=== PATIENT | male | born 1955 | race Hispanic/Latino ===

== ENCOUNTER 2018-03-02 11:33 | Day surgery (SDC) | payer OTHER ==
[2018-03-02] MEDS ORDERED: Ringers Lactate 1,000 ML IV ONE (12:05)
[2018-03-02] MEDS ORDERED: LIDOCAINE 1% MPF 2 ML AMPULE ONE (13:14)
[2018-03-02] MEDS ORDERED: PROPOFOL 200 MG/20 ML VIAL IV ONE ×2 (13:15)
[2018-03-02 14:28] VITALS: BP 119/73; TEMP 97.2; O2SAT 96
--- NOTE | 2018-03-02 17:23 | OP ---
Surgeon: William Bear MD Procedure Performed: Colonoscopy. Indication For Procedure: Screening, also a remote history of iron deficiency anemia. Plan For Anesthesia: Monitored anesthesia care. Complexity: Average. Technique: After obtaining informed consent from the patient explaining risks and complications, whi ch include, but are not limited to bleeding, infection, perforation, and anesthesia complication, the patient was placed in a left lateral position and sedation was given. Subsequently, a digital recta l exam was performed and scope was inserted into the rectum and carefully guided up till the terminal ileum. After the completion of examination, scope and equipment were withdrawn and procedure termin ated in a safe manner. Findings: On digital rectal exam, the prostate appeared to be mildly enlarged, but smooth. No other abnormality was appreciated. The scope was advanced into the rectum and carefully guided up till th e terminal ileum. The quality of prep according to [place] prep score was 2+2+2, equal to 6 x 9. Sco pe withdrawal time was 11 minute. In the descending colon, two flat polyps from 4-7 mm were seen. T hese were removed by hot biopsy. In the transverse colon, 2 polyps from 6-7 mm were seen. These wer e also flat in nature were removed by hot biopsy. At the hepatic flexure, a 7 mm sessile polyp was s een. This was removed by hot biopsy. In the ascending colon, a flat polyp around 6 mm was seen. Th is was also removed by hot biopsy. The terminal ileum appeared normal. Retroflexion revealed grade 1 internal hemorrhoids. Complications: None. Tolerance To Anesthesia: Excellent. Postoperative Diagnoses: Multiple flat polyps, internal hemorrhoids, enlarged prostate. Plan: 1.Await pathology results. 2.Follow up in the GI clinic in 2 weeks. 3.EGD if not already scheduled for workup for the iron deficiency anemia. Staged colonoscopy recomm ended in 1 year due to multiple flat polyps if they vehicle return associate to be adenomatous. Follow up with [facility] for the prostate. US/MODL Voice ID: [id number] Report ID: [id number]
== END 2018-03-02 14:17 | disposition home or self-care (01) ==
LOC: OR 11:33
PROVIDERS: ATTEND Internal Medicine Gastroenterology
PROC: 0DBL8ZX Excision of Transverse Colon, Via Natural or Artificial Opening Endoscopic, Diagnostic (ICD-10-PCS; 2018-03-02)
PROC: 0DBM8ZX Excision of Descending Colon, Via Natural or Artificial Opening Endoscopic, Diagnostic (ICD-10-PCS; 2018-03-02)
PROC: 0DBK8ZX Excision of Ascending Colon, Via Natural or Artificial Opening Endoscopic, Diagnostic (ICD-10-PCS; principal; 2018-03-02 12:30)
DX: Z12.11 Encounter for screening for malignant neoplasm of colon (principal); K63.5 Polyp of colon; D12.4 Benign neoplasm of descending colon; D12.3 Benign neoplasm of transverse colon; K64.8 Other hemorrhoids
CPT/HCPCS: 88305; J2001

== ENCOUNTER 2023-06-28 11:03 | Day surgery (SDC) | payer MEDICARE ==
--- NOTE | 2023-06-24 14:10 | EKG ---
Test Date: 2023-06-23 Test Time: 10:30:20 Life Advisor: JT MEASUREMENT RESULTS: Intervals: Rate: 62 ME: 190 QRSD: 84 QT: 390 QTc: 395 [place]: P: 26 ME: 190 QRS: -1 T: 65 INTERPRETIVE STATEMENTS: Normal sinus rhythm Normal ECG Compared to ECG 01/29/2009 15:43:47 No significant changes Electronically Signed On 06-24-23 14:07:14 HAND RIVETER by Marquis Marroquin
[2023-06-28] MEDS ORDERED: Ringers Lactate 1,000 ML IV ONE (11:32)
[2023-06-28 11:33] VITALS: O2SAT 96
[2023-06-28] MEDS ORDERED: propofoL 200 MG/20 ML VIAL IV ONE (12:56)
[2023-06-28] MEDS ORDERED: MIDAZOLAM HCL 2 MG/2 ML INJ ONE (12:57)
[2023-06-28] MEDS ORDERED: LIDOCAINE 2% MPF 5 ML VIAL ONE (12:57)
[2023-06-28] MEDS ORDERED: BUPIVACAINE 0.25% PF 10 ML VIAL ONE (13:00)
[2023-06-28] MEDS ORDERED: LIDOCAINE 1% MPF 30 ML VIAL ONE (13:09)
[2023-06-28 14:04] VITALS: BP 110/67; TEMP 97
--- NOTE | 2023-06-28 14:07 | RAD REPORT ---
EXAM DESCRIPTION: RAD - Fluoro Guide Spinal Inj - 06/28/2023 1:28 pm CLINICAL HISTORY: LUMBAR MEDIAL BRANCH EPIDURAL, L3/L4 , L4/L5 COMPARISON: No comparisons FINDINGS/IMPRESSION: One intraoperative fluoroscopic images submitted for bilateral spinal injection s at L3, L4, and L5 . Fluoro time: 0.4 minutes Cumulative dose: 6.04 mGy
== END 2023-06-28 14:00 | disposition home or self-care (01) ==
LOC: OR 11:03
PROVIDERS: ATTEND Pain Medicine Interventional Pain Medicine
PROC: 3E0T3GC Introduction of Other Therapeutic Substance into Peripheral Nerves and Plexi, Percutaneous Approach (ICD-10-PCS; principal; 2023-06-28 12:45)
DX: M47.816 Spondylosis without myelopathy or radiculopathy, lumbar region (principal); M19.90 Unspecified osteoarthritis, unspecified site; E03.9 Hypothyroidism, unspecified; G25.0 Essential tremor
CPT/HCPCS: 64493; 64494; 93005; 77003; J2704; J2001 ×2; J2250; J7120; Q9967

== ENCOUNTER 2024-12-05 11:23 | Emergency (ER) | payer MEDICARE ==
--- OUTSIDE RECORDS SUMMARY | 2024-12-05 11:26 | XMS REPORT | Continuity of Care Document ---
Author Name Unknown Address [address] [facility] [place] [address] Organization [facility] [place] Address [address] [facility] [address] [place] [address] Care Team Providers Care Ranger Aide Name Role Phone DANN MEZA Primary Care Physician Unavaila ble Dann Meza Attending Clinician Unavailable KEL CARMONA Attending Clinician Unavailable Kel Carmona MD Attending Clinician [phone] CARLOS ZARAGOZA Attending Clinician Unavailable Carlos Zaragoza MD Attending Clinici an Rich Michael MD Attending Clinician [phone] Brian Cifuentes MD Attending Clinic star Lola Attending Clinician Unavailable Cindy Hutchins Attending Clinician [phone] TRISTEN PINEDA Attending Clinician UnavailTristen Bocanegra MD Attending Clinician [phone] Doctor Unassigned, [place] Attending Clinician CINDY Gallardo Attending Clinician Unavailable CARLOS ZARAGOZA Admitting Clinician Unavailable Lola Admitting Clinician Unavailable Payers Payer Name Policy Type Policy Number Effective Date Expirati on Date Source [employer] MEDICARE ADV[employer]AGE PLAN [id number] 2023 00:00:00 [employer] MGD MCR [id number] 2021 00:00:00 [employer] (MEDICARE REPLACEMENT HMO) [id number] 2021 00:00:00 Problems Condition Name Condition Details Condition Category Status Onset Date Resolution Date Last Treatment Date Treating Clinician Comments Source Arthritis of knee, right Arthritis of knee, right Disease Active 08-31 00:00: 00 [facility] No known active problems No known active problems Disease [facility] [id number] Primary osteoarthr itis of left knee Problem [facility] [id number] Primary osteoarthr itis of left shoulder Problem [facility] [id number] Primary osteoarthr itis of right shoulder Problem [facility] [id number] Other obstructiv e and reflux uropathy Problem [facility] [id number] Primary osteoarthr itis of right knee Problem [facility] [id number] Chronic anemia Problem [facility] Disorder of penis Penile abnormalit y Problem [facility] [id number] Tear of left rotator cuff, unspecifie d tear extent, unspecifie d whether traumatic Problem [facility] [id number] BXO (balanitis xerotica obliterans ) Problem [facility] [id number] Acquired phimosis of penis Problem [facility] [id number] Benign prostatic hyperplasi a with lower urinary tract symptoms Problem [facility] Allergies, Adverse Reactions, Alerts Allergy Name Allergy Type Status Severity Reaction(s) Onset Date Inactive Date Treating Clinician Comments Source NO KNOWN ALLERGIE S Drug Class Active [facility] NO KNOWN ALLERGIE S Allergy Active [facility] Social History Social Habit Start Date Stop Date Quantity Comments Source Gender identity [facility] Sexual orientation [facility] History of Tobacco Use [facility] History of Social function 2023-08-28 00:00:00 2023-08-28 00:00:00 [facility] Alcohol intake 2022-09-02 00:00:00 2022-09-02 00:00:00 Ex-drinker (finding) [facility] Alcoholic beverage intake 2022-09-02 00:00:00 2022-09-02 00:00:00 Ex-drinker (finding) [facility] Exposure to SARS-CoV-2 (event) 2022-08-21 00:00:00 2022-08-31 06:11:00 Not sure [facility] Tobacco use and exposure 2022-08-29 00:00:00 2022-08-29 00:00:00 Smokeless tobacco non-user [facility] Sex 2012-09-01 21:32:09 2012-09-01 21:32:09 Male (finding) [facility] Sex assigned at 1955 00:00:00 1955 00:00:00 [facility] Smoking Status Start Date Stop Date Source Never Smoker [facility] Medications Ordered Medication Name Filled Medication Name Start Date Stop Date Current Medication? Ordering Clinician Indication Dosage Frequency Signature (SIG) Comments Components Source Flomax 0.4 MG Flomax 0.4 MG 10-24 00:00: 00 No Flomax 0.4 MG Clotrimazol e-Betametha sone 1-0.05 % Clotrimazol e-Betametha sone 1-0.05 % -13 00:00: 00 No BID Clotrimazo le-Betamet hasone 1-0.05 % Synvisc Synvisc -24 00:00: 00 No 2mL [facility] BUPivacaine HCl BUPivacaine HCl - 00:00: 00 No 5mL [facility] butalbital- acetaminoph en-caff (ESGIC) 50-325-40 mg tablet 1 tablet 05-02 02:15: 00 05-02 02:24 :00 No 1{tbl} 1 tablet, Oral, ONCE, 1 dose, On Mon05/01/23 at 2115, [facility] acetaminoph en (TYLENOL) tablet 650 mg 05-02 01:45: 00 05-02 01:39 :00 No 650mg 650 mg, Oral, ONCE, 1 dose, On Mon05/01/23 at 2045, [facility] traMADoL (ULTRAM) 50 mg tablet 05-01 00:00: 00 Yes [id number] 50mg Take 1 tablet by mouth every 6 (six) hours as needed for Pain (scale 7-10). Indication s: acute pain [facility] nirmatrelvi r-ritonavir (PAXLOVID) 150-100 mg tablet 05-01 00:00: 00 05-07 04:59 :00 No [id number] 2{tbl} Take 2 tablets by mouth in the morning and 2 tablets in the evening. Do all this for 5 days. [facility] diclofenac (VOLTAREN) 75 MG EC tablet 08-31 15:46: 12 Yes 75mg Take 75 mg by mouth 2 (two) times daily as needed. [facility] Missing or Non-Formula ry Medication 08-31 15:46: 12 Yes as needed OTC antiinflam matory supplement . [facility] diclofenac (VOLTAREN) 75 MG EC tablet 08-31 06:12: 44 Yes 75mg Take 75 mg by mouth 2 (two) times daily as needed. [facility] Missing or Non-Formula ry Medication 08-31 06:12: 44 Yes as needed OTC antiinflam matory supplement . [facility] Kenalog (Triamcinol one) Kenalog (Triamcinol one) 11-30 00:00: 00 No 40mg [facility] Bupivicaine Arden Bupivicaine Arden 11-30 00:00: 00 No 2.5mg [facility] triamcinolo ne acetonide (KENALOG) injection 40 mg 10-01 17:00: 00 10-01 15:51 :00 No [id number] 40mg [facility] methylPREDN ISolone (MEDROL, ALETHEA,) 4 mg tablets 2019-08 00:00: 00 Yes [id number] 9104 84mg Take 21 tablets by mouth SEE-INSTRU CTIONS. follow package directions [facility] diclofenac 75 mg EC tablet 10-01 00:00: 00 Yes 75mg Take 1 tablet by mouth 2 (two) times daily with meals. [facility] gabapentin 600 mg tablet 08-15 00:00: 00 Yes [facility] clotrimazol e 1 % topical cream 2018-08 00:00: 00 Yes [facility] Silodosin 8 MG Silodosin 8 MG No 1{capsu le_with _a_meal } QD Silodosin 8 MG HYDROcodone -Acetaminop hen 10-325 MG HYDROcodone -Acetaminop hen 10-325 MG No 1{table t_as_ne eded} QID HYDROcodon e-Acetamin ophen 10-325 MG Diclofenac Sodium 75 MG Diclofenac Sodium 75 MG No 1{table t_as_ne eded} BID Diclofenac Sodium 75 MG Ferrous Sulfate 325 (65 Fe) MG Ferrous Sulfate 325 (65 Fe) MG No 1{table t} Ferrous Sulfate 325 (65 Fe) MG Levothyroxi ne Sodium 125 MCG Levothyroxi ne Sodium 125 MCG No QD Levothyrox ine Sodium 125 MCG Vital Signs Vital Name Observation Time Observation Value Comments S ource height 2024-10-24 15:30:00 68 [in_i] Commo n [facility] weight 2024-10-24 15:30:00 223 [lb_av] Comm on [facility] temperature 2024-10-24 15:30:00 98.2 [degF] Com mon [facility] bmi 2024-10-24 15:30:00 33.9 kg/m2 Commo n [facility] oximetry 2024-10-24 15:30:00 96 % Comm n [facility] respiratory rate 2024-10-24 15:30:00 18 /min [facility] blood pressure systolic 2024-10-24 15:30:00 114 mm[Hg] [facility] blood pressure diastolic 2024-10-24 15:30:00 57 mm[Hg] [facility] Systolic blood pressure 2023-05-02 02:31:00 102 mm[Hg] [facility] Diastolic blood pressure 2023-05-02 02:31:00 61 mm[Hg] [facility] Heart rate 2023-05-02 02:31:00 81 /min [facility] acute hospital Body temperature 2023-05-02 02:31:00 37.72 Jill [facility] Respiratory rate 2023-05-02 02:31:00 18 /min [facility] Oxygen saturation in Arterial blood by Pulse oximetry 2023-05-02 02:31:00 98 /min [facility] Body height 2023-05-02 01:32:00 172.7 cm [facility] Body weight 2023-05-02 01:32:00 95.89 kg [facility] BMI 2023-05-02 01:32:00 32.14 kg/m2 [facility] HEIGHT 2022-08-31 06:25:00 172.7 cm WEIGHT 2022-08-31 06:25:00 99 kg HEIGHT 2022-08-29 11:12:00 172.7 cm WEIGHT 2022-08-29 11:12:00 95.255 kg HEIGHT 2022-08-31 06:25:00 172.7 cm WEIGHT 2022-08-31 06:25:00 99 kg HEIGHT 2022-08-29 11:12:00 172.7 cm WEIGHT 2022-08-29 11:12:00 95.255 kg Systolic blood pressure 2021-10-01 15:29:00 155 mm[Hg] [facility] Diastolic blood pressure 2021-10-01 15:29:00 91 mm[Hg] [facility] Heart rate 2021-10-01 15:17:00 65 [facility] 2021-10-01 15:17:00 172.7 cm [facility] 2021-10-01 15:17:00 102.059 kg [facility] BMI 2021-10-01 15:17:00 34.21 kg/m2 [facility] Oxygen saturation in Arterial blood by Pulse oximetry 2021-10-01 15:17:00 97 /min [place] [facility] Systolic blood pressure 2022-08-31 13:30:00 134 mm[Hg] [facility] Diastolic blood pressure 2022-08-31 13:30:00 78 mm[Hg] [facility] Heart rate 2022-08-31 13:30:00 85 /min [facility] Body temperature 2022-08-31 13:30:00 36.78 Jill [facility] Respiratory rate 2022-08-31 13:30:00 18 /min [facility] Oxygen saturation in Arterial blood by Pulse oximetry 2022-08-31 13:30:00 98 /min [facility] Systolic blood pressure 2022-08-31 06:25:00 125 mm[Hg] [facility] Diastolic blood pressure 2022-08-31 06:25:00 67 mm[Hg] [facility] Heart rate 2022-08-31 06:25:00 67 /min [facility] Body temperature 2022-08-31 06:25:00 36.11 Jill [facility] Respiratory rate 2022-08-31 06:25:00 17 /min [facility] Body height 2022-08-31 06:25:00 172.7 cm [facility] Body weight 2022-08-31 06:25:00 99 kg [facility] BMI 2022-08-31 06:25:00 33.19 kg/m2 [facility] Oxygen saturation in Arterial blood by Pulse oximetry 2022-08-31 06:25:00 97 /min [facility] Procedures Procedure Date / Time Performed Performing Clinician Source RAPID STREP SCREEN FOR GROUP A 2023-05-02 01:39:00 Kel Carmona [facility] COVID-19 (ID NOW RAPID TESTING) 2023-05-02 01:39:00 Kel Carmona [facility] NOTICE OF PRIVACY PRACTICES 2023-05-02 01:21:28 Doctor Unassigned, [place] [facility] CONSENT/REFUSAL FOR DIAGNOSIS AND TREATMENT 2023-05-02 01:20:38 Doctor Unassigned, [place] [facility] XR KNEE 1 OR 2 VIEWS RIGHT 2022-08-31 09:40:00 Asaf Guajardo [facility] TISSUE EXAM 2022-08-31 08:30:00 Carlos Zaragoza Tank [facility] ANESTHESIA SPINAL BLOCK 2022-08-31 08:02:04 Dann Castro [facility] ANESTHESIA PERIPHERAL BLOCK 2022-08-31 08:00:57 Dann Mcmanus [facility] ARTHROPLASTY, KNEE, UNILATERAL 2022-08-31 07:36:00 Milla Carlos [facility] ARTHROPLASTY, KNEE, UNILATERAL 2022-08-31 07:30:00 Milla Carlos [facility] CBC W/PLT COUNT & AUTO DIFFERENTIAL 2022-08-31 06:01:00 Efren Rollins [facility] BASIC METABOLIC PANEL 2022-08-31 06:01:00 Efren Rollins [facility] TYPE AND SCREEN, AUTOMATED 2022-08-31 06:01:00 Asaf Guajardo [facility] CBC W/PLT COUNT & AUTO DIFFERENTIAL 2022-08-31 06:01:00 Efren Rollins [facility] STATEMENT OF PATIENT FINANCIAL RESPONSIBILITY 2021-10-01 06:01:00 Doctor Unassigned, [place] [facility] Plan of Care Planned Activity Planned Date Details Comments Source Future Scheduled Test 2023-08-31 00:00:00 Tobacco Cessation Counseling and Screening (12+) [code = Tobacco Cessation Counseling and Screening (12+)] [facility] Future Scheduled Test 2023-08-31 00:00:00 Tobacco Cessation Counseling and Screening (12+) [code = Tobacco Cessation Counseling and Screening (12+)] [facility] Future Scheduled Test 2023-08-31 00:00:00 Tobacco Cessation Counseling and Screening (12+) [code = Tobacco Cessation Counseling and Screening (12+)] [facility] Future Scheduled Test 2023-08-29 00:00:00 Tobacco Cessation Counseling and Screening (12+) [code = Tobacco Cessation Counseling and Screening (12+)] [facility] Future Scheduled Test 2023-08-14 00:00:00 DEPRESSION SCREENING (12+) [code = DEPRESSION SCREENING (12+)] [facility] Scheduled Test 2023-08-14 00:00:00 FALLS RISK SCREENING [code = FALLS RISK SCREENING] [facility] Future Scheduled Test 2023-04-14 00:00:00 Influenza Vaccine (#1) [code = Influenza Vaccine (#1)] [facility] Future Scheduled Test 2022-08-15 00:00:00 MEDICARE ANNUAL WELLNESS (YEAR 2 or FIRST YEAR if no IPPE) [code = MEDICARE ANNUAL WELLNESS (YEAR 2 or FIRST YEAR if no IPPE)] [facility] Future Scheduled Test 2022-08-15 00:00:00 MEDICARE ANNUAL WELLNESS (YEAR 2 or FIRST YEAR if no IPPE) [code = MEDICARE ANNUAL WELLNESS (YEAR 2 or FIRST YEAR if no IPPE)] [facility] Future Scheduled Test 2022-08-15 00:00:00 MEDICARE ANNUAL WELLNESS (YEAR 2 or FIRST YEAR if no IPPE) [code = MEDICARE ANNUAL WELLNESS (YEAR 2 or FIRST YEAR if no IPPE)] [facility] Future Scheduled Test 2022-08-15 00:00:00 MEDICARE ANNUAL WELLNESS (YEAR 2 or FIRST YEAR if no IPPE) [code = MEDICARE ANNUAL WELLNESS (YEAR 2 or FIRST YEAR if no IPPE)] [facility] Future Scheduled Test 2022-08-14 00:00:00 DEPRESSION SCREENING (12+) [code = DEPRESSION SCREENING (12+)] [facility] Future Scheduled Test 2022-08-14 00:00:00 FALLS RISK SCREENING [code = FALLS RISK SCREENING] [facility] Future Scheduled Test 2022-08-14 00:00:00 DEPRESSION SCREENING (12+) [code = DEPRESSION SCREENING (12+)] [facility] Future Scheduled Test 2022-08-14 00:00:00 FALLS RISK SCREENING [code = FALLS RISK SCREENING] [facility] Future Scheduled Test 2022-08-14 00:00:00 DEPRESSION SCREENING (12+) [code = DEPRESSION SCREENING (12+)] [facility] Future Scheduled Test 2022-08-14 00:00:00 FALLS RISK SCREENING [code = FALLS RISK SCREENING] [facility] Future Scheduled Test 2022-04-14 00:00:00 INFLUENZA VACCINE (#1) [code = INFLUENZA VACCINE (#1)] [facility] Future Scheduled Test 2022-04-14 00:00:00 INFLUENZA VACCINE (#1) [code = INFLUENZA VACCINE (#1)] [facility] Future Scheduled Test 2022-04-14 00:00:00 INFLUENZA VACCINE (#1) [code = INFLUENZA VACCINE (#1)] [facility] Future Scheduled Test 2019 00:00:00 PNEUMOCOCCAL 65+ YRS (1 - PCV) [code = PNEUMOCOCCAL 65+ YRS (1 - PCV)] [facility] Future Scheduled Test 2019 00:00:00 PNEUMOCOCCAL 65+ YRS (1 - PCV) [code = PNEUMOCOCCAL 65+ YRS (1 - PCV)] [facility] Future Scheduled Test 2019 00:00:00 PNEUMOCOCCAL 65+ YRS (1 - PCV) [code = PNEUMOCOCCAL 65+ YRS (1 - PCV)] [facility] Future Scheduled Test 2019 00:00:00 PNEUMOCOCCAL 65+ YRS (1 - PCV) [code = PNEUMOCOCCAL 65+ YRS (1 - PCV)] [facility] Future Scheduled Test 2004 00:00:00 SHINGLES VACCINES (1 of 2) [code = SHINGLES VACCINES (1 of 2)] [facility] Future Scheduled Test 2004 00:00:00 SHINGLES VACCINES (1 of 2) [code = SHINGLES VACCINES (1 of 2)] [facility] Future Scheduled Test 2004 00:00:00 SHINGLES VACCINES (1 of 2) [code = SHINGLES VACCINES (1 of 2)] [facility] Future Scheduled Test 2004 00:00:00 SHINGLES VACCINES (1 of 2) [code = SHINGLES VACCINES (1 of 2)] [facility] Future Scheduled Test 1973 00:00:00 DTAP/TDAP/TD VACCINES (1 - Tdap) [code = DTAP/TDAP/TD VACCINES (1 - Tdap)] [facility] Future Scheduled Test 1973 00:00:00 DTAP/TDAP/TD VACCINES (1 - Tdap) [code = DTAP/TDAP/TD VACCINES (1 - Tdap)] [facility] Future Scheduled Test 1973 00:00:00 DTAP/TDAP/TD VACCINES (1 - Tdap) [code = DTAP/TDAP/TD VACCINES (1 - Tdap)] [facility] Future Scheduled Test 1973 00:00:00 DTAP/TDAP/TD VACCINES (1 - Tdap) [code = DTAP/TDAP/TD VACCINES (1 - Tdap)] [facility] Future Scheduled Test 1972 00:00:00 HEPATITIS C SCREENING [code = HEPATITIS C SCREENING] [facility] Future Scheduled Test 1972 00:00:00 HEPATITIS C SCREENING [code = HEPATITIS C SCREENING] [facility] Future Scheduled Test 1972 00:00:00 HEPATITIS C SCREENING [code = HEPATITIS C SCREENING] [facility] Future Scheduled Test 1972 00:00:00 HEPATITIS C SCREENING [code = HEPATITIS C SCREENING] [facility] Future Scheduled Test 1954 00:00:00 COVID-19 VACCINE (#1) [code = COVID-19 VACCINE (#1)] [facility] Future Scheduled Test 1954 00:00:00 COVID-19 VACCINE (#1) [code = COVID-19 VACCINE (#1)] [facility] Future Scheduled Test 1954 00:00:00 COVID-19 VACCINE (#1) [code = COVID-19 VACCINE (#1)] [facility] Future Scheduled Test 1954 00:00:00 COVID-19 VACCINE (#1) [code = COVID-19 VACCINE (#1)] [facility] Future Scheduled Test 1954 00:00:00 CT Colonography (combo) [code = CT Colonography (combo)] [facility] Future Scheduled Test 1955 00:00:00 Screening for malignant neoplasm of colon (procedure) [code = 106155241] [facility] Future Scheduled Test 1954 00:00:00 Screening for malignant neoplasm of colon (procedure) [code = 557014805] [facility] Future Scheduled Test 1955 00:00:00 Screening for malignant neoplasm of colon (procedure) [code = 873763088] [facility] Future Scheduled Test 1954 00:00:00 Screening for malignant neoplasm of colon (procedure) [code = 598921777] [facility] Future Scheduled Test 1954 00:00:00 Sigmoidoscopy [code = Sigmoidoscopy] [facility] Future Scheduled Test 1954 00:00:00 CT Colonography (combo) [code = CT Colonography (combo)] [facility] Future Scheduled Test 1954 00:00:00 Screening for malignant neoplasm of colon (procedure) [code = 517566173] [facility] Future Scheduled Test 1954 00:00:00 Screening for malignant neoplasm of colon (procedure) [code = 091609291] [facility] Future Scheduled Test 1954 00:00:00 Screening for malignant neoplasm of colon (procedure) [code = 027259963] [facility] Future Scheduled Test 1954 00:00:00 Screening for malignant neoplasm of colon (procedure) [code = 447194598] [facility] Future Scheduled Test 1954 00:00:00 Sigmoidoscopy [code = Sigmoidoscopy] [facility] Future Scheduled Test 1954 00:00:00 CT Colonography (combo) [code = CT Colonography (combo)] [facility] Future Scheduled Test 1954 00:00:00 Screening for malignant neoplasm of colon (procedure) [code = 232160408] [facility] Future Scheduled Test 1954 00:00:00 Screening for malignant neoplasm of colon (procedure) [code = 221636532] [facility] Future Scheduled Test 1955 00:00:00 Screening for malignant neoplasm of colon (procedure) [code = 294700756] [facility] Future Scheduled Test 1954 00:00:00 Screening for malignant neoplasm of colon (procedure) [code = 178977560] [facility] Future Scheduled Test 1954 00:00:00 Sigmoidoscopy [code = Sigmoidoscopy] [facility] Future Scheduled Test 1954 00:00:00 CT Colonography (combo) [code = CT Colonography (combo)] [facility] Future Scheduled Test 1954 00:00:00 Screening for malignant neoplasm of colon (procedure) [code = 079481582] [facility] Future Scheduled Test 1954 00:00:00 Screening for malignant neoplasm of colon (procedure) [code = 318194519] [facility] Future Scheduled Test 1954 00:00:00 Screening for malignant neoplasm of colon (procedure) [code = 349941192] [facility] Future Scheduled Test 1954 00:00:00 Screening for malignant neoplasm of colon (procedure) [code = 337159754] [facility] Future Scheduled Test 1954 00:00:00 Sigmoidoscopy [code = Sigmoidoscopy] [facility] Encounters Start Date/Time End Date/Time Encounter Type Admission Type Attending Clinicians Care Facility Care Department Encounter ID Source 2024-10-24 14:47:00 Outpatient Dann Meza [facility] [id number] [facility] 2024-10-14 11:31:01 Outpatient Susana Dann [facility] [id number] [facility] 2024-10-07 10:35:00 Outpatient Meza, Dann [facility] [id number] [facility] 2024-09-16 12:43:00 Outpatient Meza, Dann [facility] [id number] [facility] 2024-08-20 09:59:00 Outpatient Meza, Dann [facility] [id number] [facility] 2023-12-14 16:52:00 Outpatient Meza, Dann [facility] [id number] [facility] 2023-12-06 11:17:01 Outpatient Meza, Dann [facility] [id number] [facility] 2021-10-12 15:24:03 Outpatient Meza, Dann [facility] [id number] [facility] 2024-10-24 00:00:00 2024-10-24 00:00:00 OFFICE VISIT NEW PT LEVEL 5 [facility] [id number] [facility] 2023-05-01 20:36:00 2023-05-01 21:54:00 Emergency X KEL CARMONA [facility] ERT [id number] [facility] 2023-05-01 20:36:00 2023-05-01 21:54:[address] [facility] [id number] [facility] 2022-08-31 05:04:00 2022-08-31 13:53:00 Outpatient CARLOS TERRY [facility] Surgery [id number] [facility] 2022-08-31 05:04:00 2022-08-31 13:53:00 Hospital Encounter TAVARES SawyerZaragoza, Carlosfemi Fu [facility] [id number] [facility] 2022-08-31 07:30:2022-08-31 09:44:00 Surgery Carlos Zaragoza [facility] [id number] [facility] 2022-08-31 07:36:00 2022-08-31 09:13:00 Anesthesia Event Rich Michael Christopher William [facility] [id number] [facility] 2022-08-31 00:00:00 2022-08-31 00:00:00 Travel [facility] [id number] [facility] 2022-08-29 00:00:00 2022-08-29 00:00:00 Outpatient EL CARLOS ZARAGOZA [facility] [id number] [facility] 2022-08-29 00:00:00 2022-08-29 00:00:00 Travel [facility] [id number] [facility] 2022-07-07 00:00:00 2022-07-07 00:00:00 [place]patient Daniels_[place] [id number] [facility] 2022-07-07 00:00:00 2022-07-07 00:00:00 Outpatient Daniels_b DMG DMG [id number] [facility] 2022-02-25 03:07:00 2022-02-25 03:07:00 Outpatient DMG DMG [id number] [facility] 2022-01-09 00:00:00 2022-01-09 00:00:00 Cindy Vaughan [facility] [id number] 350.1.13.10 4.2.7.2.686 [id number] [facility] 2021-10-01 09:30:00 2021-10-01 09:57:58 Outpatient TRISTEN STALEY [facility] [id number] [facility] 2021-10-01 09:30:00 2021-10-01 09:57:58 Office Visit Tristen Pineda [facility] 1.2.840.114 350.1.13.10 4.2.7.2.686 [id number] [facility] 2021-10-01 09:30:00 2021-10-01 09:57:58 Outpatient R TRISTEN PINEDA [facility] [id number] [facility] 2021-10-01 09:30:00 2021-10-01 09:30:00 Outpatient R TRISTEN PINEDA [facility] [id number] [facility] 2021-10-01 00:00:00 2021-10-01 00:00:00 Orders Only Doctor Unassigned, [place] [facility] 1.840.114 350.1.13.10 4.2.7.2.686 [id number] [facility] 2021-09-27 00:00:00 2021-09-27 00:00:00 Telephone Tristen Pineda [facility] 1..840.114 350.1.13.10 4.2.7.2.686 [id number] [facility] 2021-07-24 00:00:00 2021-07-24 00:00:[address] [facility] 1..840.114 350.1.13.10 4.2.7.2.686 [id number] [facility] 2021-07-16 08:01:00 2021-07-16 08:01:00 Outpatient DMG DMG [id number] [facility] 2021-06-28 15:45:00 2021-06-28 16:15:32 Outpatient R TRISTEN PINEDA [facility] [id number] [facility] 2021-06-28 15:22:02 2021-06-28 16:15:32 Office Visit Tristen Pineda [facility] 1.2840.114 350.1.13.10 4.2.7.2.686 [id number] [facility] 2021-06-15 16:05:00 2021-06-15 23:59:00 Outpatient R TRISTEN PINEDA [facility] [id number] [facility] 2021-06-15 16:05:00 2021-06-15 23:59:00 Hospital Encounter Tristen Pineda [facility] 1.2.840.114 350.1.13.10 4.2.7.2.686 [id number] [facility] 2021-06-15 15:38:02 2021-06-15 16:46:14 Office Visit Cindy Woods [facility] 1.2.840.114 350.1.13.10 4.2.7.2.686 [id number] [facility] 2021-06-15 16:15:00 2021-06-15 16:15:00 Outpatient CINDY RAMIREZ [facility] [id number] [facility] 2021-03-25 16:15:00 2021-03-25 16:15:00 Outpatient CINDY RAMIREZ [facility] [id number] [facility] 2020-08-13 13:30:00 2020-08-13 13:30:00 Outpatient CINDY RAMIREZ [facility] [id number] [facility] 2020-08-10 15:00:00 2020-08-10 15:00:00 Outpatient CINDY RAMIREZ [facility] [id number] [facility] 2020-07-29 15:30:00 2020-07-29 15:30:00 Outpatient CINDY RAMIREZ [facility] [id number] [facility] 2020-05-01 08:30:00 2020-05-01 08:30:00 Outpatient CINDY RAMIREZ [facility] [id number] [facility] 2020-04-30 13:00:23 2020-04-30 13:48:21 Office Visit Cindy Woods [facility] deloris Azul 1.2.840.114 350.1.13.10 4.2.7.2.686 [id number] 2020-04-30 13:30:00 2020-04-30 13:30:00 Outpatient Moira CHUCK CINDY [facility] [id number] [facility] 2020-04-23 14:45:00 2020-04-23 14:45:00 Outpatient Moira WOODS [facility] [id number] [facility] 2020-01-03 09:13:50 2020-01-03 23:59:00 [id number] [facility] 2020-01-03 09:15:00 2020-01-03 09:15:00 [facility] [id number] [facility] 2019-08-29 08:16:49 2019-08-29 23:59:00 Outpatient TRISTEN PINEDA [facility] [id number] [facility] Results Test Description Test Time Test Comments Results Result Co mments Source [facility] [id number] 11:08:27Surgical Pathology Report Case: [id number] Authorizing Provider: Carlos Zaragoza Collected: 08/31/2022 08:30 AM MD Ted Ordering Location: [facility] OR Received: 08/31/2022 02:15 PM Perioperative Services Pathologist: Soumya Durbin MD Specimen: Condyle,Right Knee, right knee condyle BONE, RIGHT KNEE CONDYLE, EXCISION: - DEGENERATIVE JOINT DISEASE Signing Pathologist Direct Phone Line: [phone] signed by Soumya Durbin MD on 09/05/2022 at 11:08 [id number] osteoarthritis of right kneeA. Condyle,Right Knee.A. Received fresh, labeled with the patient's name, MRN and "Condyle,right knee" is a 10.8 x 10.0 x 1.5 cm aggregate of dietz-yellow to gonzales-white bone and cartilage consisting of the epicondyles, tibial plateau and patella with an aggregate of 2.4 x1.5 x 0.6 cm soft tissue.There articular surface displays focal areas of eburnation with osteophytic formation. The articular surface cartilage ranges 0.2-0.5 cm in thickness. The medullary bone displays homogenous, yellow trabeculated bone with no gross lesions. Car Runner sections are submitte d:Section Code:A1-A2: Eburnation, following decalcificationA3: Soft tissue DONTAE Stephenson StudentPerformed. [facility], Department of Pathology, [address] [place] [address], [facility], [address] [place] [address], [facility], Department of [facility], [address] [place], [place] [id number], VOB, KNEE, 1 OR 2 VIEWS, [id number] 09:54:00Reason for exam:- >pacu postopKA[facility]ITAL[facility]: DOMINGUEZ GALEANO : 1955 Sex: MFINAL REPORT EXAMINATION: RAD, KNEE, 1 OR 2 VIEWS, RIGHT INDICATION: Postop COMPARISON: None DISCUSSION: Status post total knee arthroplasty without evidence of acute hardware failure. Associated postsurgical changes in the surrounding soft tissues including joint effusion with intra-articular air No acute fracture or osseous abnormality. No joint malalignment. IMPRESSION: Status post total knee arthroplasty without evidence of acute hardware complication. Associated postsurgical changes in the surrounding soft tissues. Signed: Lulu Morrison MDReport Verified Date/Time: 08/31/2022 09:54:22 Reading Location: [facility] Reading Room [address] [place] [address] CBC W/PLT COUNT & AUTO [id number] 06:47:45* Test Item Value Reference Range Interpretation Comme nts WHITE BLOOD CELL COUNT (BEAK ER) (test code = 775) 8.3 K/ L 3.5-10.5 RED BLOOD CELL COUNT (BEAKER ) (test code = 761) 4.81 M/ L 4.63-6.08 HEMOGLOBIN (BEAKER) (test co de = 410) 15.1 GM/DL 13.7-17.5 HEMATOCRIT (BEAKER) (test co de = 411) 42.3 % 40.1-51.0 MEAN CORPUSCULAR VOLUME (CONCHITA KER) (test code = 753) 88 fL 79-92 MEAN CORPUSCULAR HEMOGLOBIN (BEAKER) (test code = 751) 31.4 pg 25.7-32.2 MEAN CORPUSCULAR HEMOGLOBIN CONC (BEAKER) (test code = 752) 35.7 GM/DL 32.3-36.5 RED CELL DISTRIBUTION WIDTH (BEAKER) (test code = 412) 13.0 % 11.6-14.4 PLATELET COUNT (BEAKER) (luz elena t code = 756) 183 K/CU MM 150-450 MEAN PLATELET VOLUME (BEAKER ) (test code = 754) 9.1 fL 9.4-12.4 L NEUTROPHILS RELATIVE PERCENT (BEAKER) (test code = 429) 65 % LYMPHOCYTES RELATIVE PERCENT (BEAKER) (test code = 430) 24 % MONOCYTES RELATIVE PERCENT (BEAKER) (test code = 431) 8 % EOSINOPHILS RELATIVE PERCENT (BEAKER) (test code = 432) 3 % BASOPHILS RELATIVE PERCENT (BEAKER) (test code = 437) 1 % NEUTROPHILS ABSOLUTE COUNT (BEAKER) (test code = 670) 5.40 K/ L 1.78-5.38 H LYMPHOCYTES ABSOLUTE COUNT (BEAKER) (test code = 414) 1.96 K/ L 1.32-3.57 MONOCYTES ABSOLUTE COUNT (BE RENEE) (test code = 415) 0.66 K/ L 0.30-0.82 EOSINOPHILS ABSOLUTE COUNT (BEAKER) (test code = 416) 0.23 K/ L 0.04-0.54 BASOPHILS ABSOLUTE COUNT (BE RENEE) (test code = 417) 0.04 K/ L 0.01-0.08 IMMATURE GRANULOCYTES-RELATI VE PERCENT (BEAKER) (test code = 2801) 0.50 % 0.00-1.00 BASIC METABOLIC [id number] 06:47:16* Test Item Value Reference Range Interpretation Comme nts SODIUM (BEAKER) (test code = 381) 139 meq/L 136-145 POTASSIUM (BEAKER) (test code = 379) 3.8 meq/L 3.5-5.1 Specimen slightl y hemolyzed CHLORIDE (BEAKER) (test code = 382) 106 meq/L 98-107 CO2 (BEAKER) (test code = 355) 24 meq/L 22-29 BLOOD UREA NITROGEN (BEAKER) (test code = 354) 16 mg/dL 7-21 CREATININE (BEAKER) (test code = 358) 0.88 mg/dL 0.57-1.25 Specimen slightl y hemolyzed GLUCOSE RANDOM (BEAKER) (test code = 652) 131 mg/dL 70-105 H CALCIUM (BEAKER) (test code = 697) 8.7 mg/dL 8.4-10.2 EGFR (BEAKER) (test code = 1092) 95 mL/min/1.73 sq m Interpretation of eG FR values Stage Description Result G1 Normal or high >=90 G2 Mildly decreased 60-89 G3a Mildly to moderately 45-59 G3b Moderately to severely 30-44 G4 Severly decreased 15-29 G5 Kidney failure <15Reported eGFR is based on the CKD-EPI 2020 equation that does not use a race coefficientEstimated GFR is not as accurate as Creatinine Clearance in predicting glomerular filtration rate. Estimated GFR is not applicable for dialysis patients Notes Date/Time Note Provider Source 2023-05-01 21:31:55 Formatting of this n ote might be different from the original. Awake, alert oriented X4, respiratory even and unlabored,skin w/d color appropriate for race, moves all ext well, pt encouraged to follow up with pcp and or return as needed Pt given printed and verbal discharge instructions regarding Fever, Covid-19, Headache disorder , patient verbralized understanding and signature obtained, patient denies any other concerns. Prescriptions provided Discussed tramadol side affects and to avoid driving/operating machinery/or engaging in activities requiring alertness while taking. Advised to seek medical attention for new/prolonged/worsening of symptoms, No adverse reaction to meds given in ER noted upon discharge Pt ambulated to the lobby with steady gait [facility] 2023-05-01 20:31:36 Formatting of this n ote might be different from the original. Pt states that he began with headache, cough, fever, sore throat, body aches, dizziness and nasal congestion that started yesterday Elaine Leonardo RN [facility] 2023-05-01 20:21:00 Formatting of this n ote is different from the original. [facility] Emergency Department Note Patient Name: Dominguez Galeano Date of : 1955 67 year old male Treatment Room: [place] [address] Primary Care Physician: Dann Meza Patient Escorted by: Family [5] Mode of Arrival: Personal means [1] EMS Treatment Prior to ED Arrival: [employer] treatment: Antipyretic [employer] treatment comments: advil @ 1800 Travel and Exposure Screening: Symptoms Does patient have any of these symptoms?: (not recorded) Exposure Screening Has patient had contact with someone with a communicable disease in the last month?: (not recorded) Diseases exposed to:: (not recorded) Is Patient ?: (not recorded) Exposure Date: (not recorded) Chief Complaint: Chief Complaint Patient presents with Headache Body Aches Fever Dizziness History of Present Illness: Dominguez Galeano is a 67 year old male who presents to the ED with a headache, myalgia, cough and dizziness. Also reports fever to 102. Symptoms have been ongoing for the past two days. No sick contacts. No travel hx. Has not taken any rx except for Tylenol and Vitamin C and Zinc. 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 used: No Fever Max temp prior to arrival: 102 Temp source: Oral Severity: Moderate Onset quality: Sudden Duration: 2 days Timing: Sporadic Progression: Unchanged Chronicity: New Relieved by: Acetaminophen Worsened by: Nothing Associated symptoms: chills, cough, headaches and myalgias Associated symptoms: no chest pain, no confusion, no congestion, no diarrhea, no dysuria, no ear pain, no nausea, no rash, no rhinorrhea, no somnolence, no sore throat and no vomiting Risk factors: no contaminated food, no contaminated water, no hx of cancer, no immunosuppression, no occupational exposure, no recent sickness, no recent travel and no sick contacts Past Medical History/Immunizations: Hypothyroidism Tetanus received in last 5 years: Yes Childhood immunizations: Up-to-date Allergies: Past Social History: Tobacco Use Never smoked or used smokeless tobacco. Past Surgical History: Right Knee Replacement Review of Systems: Review of Systems Constitutional: Positive for chills and fever. HENT: Negative. Negative for congestion, ear pain, rhinorrhea and sore throat. Eyes: Negative. Respiratory: Positive for cough. Negative for shortness of breath. Breasts: Negative. Cardiovascular: Negative. Negative for chest pain. Gastrointestinal: Negative. Negative for diarrhea, nausea and vomiting. Genitourinary: Negative. Negative for dysuria. Musculoskeletal: Positive for myalgias. Skin: Negative. Negative for rash. Neurological: Positive for headaches. Psychiatric/Behavioral: Negative. Negative for confusion. All other systems reviewed and are negative. Endocrine: Endocrine negative Physical Exam: ED Triage Vitals [05/01/232031] Weight 95.9 kg (211 lb 6.4 oz) Actual or estimated Height 1.727 m (5' 8") BP 131/66 Pulse 91 Resp 18 Temp 38.8 ?C (101.8 ?F) Temp source Oral SpO2 97 % Measured on Room air Physical Exam Vitals and nursing note reviewed. Constitutional: General: He is not in acute distress. Appearance: Normal appearance. He is well-developed. He is obese. He is not ill-appearing, toxic-appearing or diaphoretic. HENT: Head: Normocephalic and atraumatic. Nose: Nose normal. No congestion or rhinorrhea. Mouth/Throat: Mouth: Mucous membranes are dry. Pharynx: Oropharynx is clear. No oropharyngeal exudate or posterior oropharyngeal erythema. Eyes: General: No scleral icterus. Right eye: No discharge. Left eye: No discharge. Extraocular Movements: Extraocular movements intact. Conjunctiva/sclera: Conjunctivae normal. Pupils: Pupils are equal, round, and reactive to light. Cardiovascular: Rate and Rhythm: Normal rate and regular rhythm. Pulses: Normal pulses. Heart sounds: Normal heart sounds. No murmur heard. Pulmonary: Effort: Pulmonary effort is normal. No respiratory distress. Breath sounds: Normal breath sounds. No stridor. No wheezing, rhonchi or rales. Chest: Chest wall: No tenderness. Abdominal: General: Bowel sounds are normal. There is no distension. Palpations: Abdomen is soft. Tenderness: There is no abdominal tenderness. There is no right CVA tenderness, left CVA tenderness, guarding or rebound. Musculoskeletal: General: No swelling, tenderness, deformity or signs of injury. Normal range of motion. Cervical back: Normal range of motion and neck supple. No rigidity or tenderness. Lymphadenopathy: Cervical: No cervical adenopathy. Skin: General: Skin is warm and dry. Capillary Refill: Capillary refill takes less than 2 seconds. Coloration: Skin is not jaundiced or pale. Findings: No bruising, erythema, lesion or rash. Neurological: General: No focal deficit present. Mental Status: He is alert and oriented to person, place, and time. Mental status is at baseline. Cranial Nerves: No cranial nerve deficit. Sensory: No sensory deficit. Motor: No weakness. Coordination: Coordination normal. Psychiatric: Behavior: Behavior normal. Thought Content: Thought content normal. Judgment: Judgment normal. Radiology: No orders to display Lab Results: Lab Results COVID-19 (ID NOW RAPID TESTING) - Abnormal Result Value Ref Range SARS-CoV-2 Rapid ID NOW Positive (*) Not Detected RAPID STREP SCREEN FOR GROUP A - Normal Molecular Strep Negative Negative THROAT CULTURE Orders and Treatments: Orders Placed This Encounter Procedures RAPID STREP SCREEN FOR GROUP A COVID-19 (ID NOW TESTING) LAB ONLY COVID INTERPRETATION THROAT CULTURE Orders Placed This Encounter Medications acetaminophen (TYLENOL) tablet 650 mg focwqvecsa-vbnvibfhmixiw-qbvi (ESGIC) 50-325-40 mg tablet 1 tablet nirmatrelvir-ritonavir (PAXLOVID) 150-100 mg tablet traMADoL (ULTRAM) 50 mg tablet First Provider Eval: ED Events Date/Time Event User Comments 05/01/232039 Medical Screening Begins KEL CARMONA MD -- 05/01/232039 First Provider Evaluation KEL CARMONA MD -- No notes of EC Admission Criteria type on file. ED COURSE ED Course as of 05/01/232120May 01, 20232119 SARS-CoV-2 Rapid ID NOW(!): Positive [WY] ED Course User Index [WY] Kel Carmona MD Diagnosis/Impression as of 05/01/232120 Fever, unspecified fever cause COVID-19 virus infection Headache disorder Procedures: Procedures MDM: Medical Decision Making Dominguez Galeano is a 67 year old male who presents with fever URI symptoms Problems Addressed: COVID-19 virus infection: acute illness or injury Fever, unspecified fever cause: acute illness or injury Headache disorder: acute illness or injury Amount and/or Complexity of Data Reviewed Independent Historian: spouse Labs: ordered. Decision-making details documented in ED Course. Risk OTC drugs. Prescription drug management. Flowsheet Documentation: Scoring Tools: No data recorded Disposition/Condition: ED Disposition ED Disposition Disch - Home Condition Stable Comment -- Discharge Medications: Patient's Medications START taking these medications NIRMATRELVIR-RITONAVIR (PAXLOVID) 150-100 MG TABLET Take 2 tablets by mouth in the morning and 2 tablets in the evening. Do all this for 5 days. TRAMADOL (ULTRAM) 50 MG TABLET Take 1 tablet by mouth every 6 (six) hours as needed for Pain (scale 7-10). Indications: acute pain CONTINUE taking these medications which have NOT CHANGED CLOTRIMAZOLE 1 % TOPICAL CREAM DICLOFENAC 75 MG EC TABLET Take 1 tablet by mouth 2 (two) times daily with meals. DICLOFENAC 75 MG EC TABLET TAKE ONE TABLET BY MOUTH TWICE A DAY WITH MEALS DICLOFENAC 75 MG EC TABLET TAKE ONE TABLET BY MOUTH TWICE A DAY WITH MEALS DICLOFENAC 75 MG EC TABLET TAKE ONE TABLET BY MOUTH TWICE A DAY WITH A MEAL GABAPENTIN 600 MG TABLET LEVOTHYROXINE 125 MCG TABLET METHYLPREDNISOLONE (MEDROL, ALETHEA,) 4 MG TABLETS Take 21 tablets by mouth SEE-INSTRUCTIONS. follow package directions START taking Modified Medications as Prescribed No medications on file STOP taking these medications No medications on file Follow-up: Contact information for follow-up Dann Meza Specialty: FM-FAMILY MEDICINE Relationship: PCP - General [address] [facility] [address] [facility] [id number] Electronically signed by: Kel Carmona MD 05/01/232120 [facility]
[2024-12-05 12:36] LABS: Influenza A Ag Negative; Influenza B Ag Negative; SARS-CoV-2 Antigen Rapid Res Negative (Negative)
[2024-12-05 16:14] LABS: Hematocrit 28.3 % (39.6-49.0); Hemoglobin 9.3 g/dL (13.6-17.9); MCH 22.1 pg (27.0-35.0); MCHC 32.8 g/dL (32.0-36.0); MCV 67.5 fL (80-100); MPV 7.1 fL (7.6-11.3); Platelets 180 thou/uL (152-406)
[2024-12-05 16:15] LABS: Blood Morphology Comment NOTED (NOT SEEN); Microcytosis 1+; Platelet Estimate ADEQ; White Blood Cell Scan OK (OK)
--- NOTE | 2024-12-05 16:24 | ER ---
Nurse's Notes [facility] Name: Dominguez Cortes Age: 69 yrs Sex: Male : 1955 Arrival Date: 12/05/2024 Time: 11:23 Bed 5 Private MD: Diagnosis: Acute upper respiratory infection, unspecified;Anemia, unspecified Presentation: 12/05 11:47 Chief complaint: Patient states: Sent by PCP to check Hgb levels. HX of anemia. Pt ss reports he has had a cough that began Monday. Coronavirus screen: Client denies travel out of the [place] in the last 14 days. Ebola Screen: Patient denies exposure to infectious person. Patient denies travel to an Ebola-affected area in the 21 days before illness onset. Initial Sepsis Screen: Does the patient meet any 2 criteria? No. Patient's initial sepsis screen is negative. Does the patient have a suspected source of infection? No. Patient's initial sepsis screen is negative. Risk Assessment: Do you want to hurt yourself or someone else? Patient reports no desire to harm self or others. Onset of symptoms is unknown. 11:47 Method Of Arrival: Ambulatory ss 11:47 Acuity: WILLIE 3 ss Triage Assessment: 11:50 Headache History: The patient has had previous headaches and this one is similar to bp previous episodes. General: Appears in no apparent distress. comfortable, Behavior is cooperative, appropriate for age, anxious. Pain: Complains of pain in head Pain currently is 5 out of 10 on a pain scale. Pain began 1 day ago. Also complains of no other associated symptoms. EENT: No deficits noted. Neuro: Reports headache. Cardiovascular: No deficits noted. Respiratory: No deficits noted. GI: No signs and/or symptoms were reported involving the gastrointestinal system. : No signs and/or symptoms were reported regarding the genitourinary system. Derm: No deficits noted. Musculoskeletal: No deficits noted. Historical: - Allergies: 11:49 No Known Allergies; ss - Home Meds: 11:49 [place] [Active]; Iron supplements [Active]; ss - PMHx: 11:49 Anemia; Hypothyroidism; ss Screenin:03 [facility] ED Fall Risk Assessment (Adult) History of falling in the last 3 months, bp including since admission No falls in past 3 months (0 pts). [facility] ED Fall Risk Assessment (Adult) Confusion or Disorientation No (0 pts) Intoxicated or Sedated No (0 pts) Impaired Gait No (0 pts) Mobility Assist Device Used No (0 pt) Altered Elimination No (0 pt) Score/Fall Risk Level 0 - 2 = Low Risk Oriented to surroundings. Abuse screen: Denies threats or abuse. Denies injuries from another. Nutritional screening: No deficits noted. Tuberculosis screening: No symptoms or risk factors identified. Assessment: 16:52 General: Appears in no apparent distress. comfortable. bp Vital Signs: 11:47 BP 134 / 69; Pulse 73; Resp 16; Temp 99(O); Pulse Ox 96% on R/A; ss 12:00 BP 131 / 69; Pulse 85; Resp 16; Pulse Ox 97% ; bp 17:02 BP 127 / 75; Pulse 79; Resp 16; Pulse Ox 98% ; bp ED Course: 11:26 Patient arrived in ED. al6 11:43 Mervat Whatley MD is Attending Physician. sw6 11:49 Triage completed. ss 11:49 Arm band placed on left wrist. ss 12:29 CXR XRAY In Process Unspecified. EDMS 15:13 Constantine Obregon, RN is Primary Nurse. bp 17:03 Patient has correct armband on for positive identification. bp 17:03 No provider procedures requiring assistance completed. IV discontinued, intact, bp bleeding controlled, No redness/swelling at site. Pressure dressing applied. Administered Medications: No medications were administered Outcome: 16:23 Discharge ordered by . sw6 16:52 Patient left the ED. ld1 17:03 Discharged to home ambulatory, with family, bp 17:03 Condition: stable 17:03 Discharge instructions given to patient, Instructed on discharge instructions, follow up and referral plans. Demonstrated understanding of instructions, follow-up care, Signatures: Dispatcher [employer] EDMS Tracee Tiwari RN RN Constantine Obregon, RN Vivienne Barbour RN RN ld1 Mervat Whatley MD MD [facility] Nazia Salinas al6
--- NOTE | 2024-12-05 16:24 | EDPHYS ---
Physician Documentation [facility] Name: Dominguez Cortes Age: 69 yrs Sex: Male : 1955 Arrival Date: 12/05/2024 Time: 11:23 Bed 5 Private MD: ED Physician Mervat Whatley HPI: 12/05 11:52 This 69 yrs old Male presents to ER via Ambulatory with complaints of Cough, sw6 Headache, Weakness. 11:52 The patient presents from home with his for evaluation for cough, congestion and sw6 bodyaches since Monday. Today is . He denies any sick contacts. He did take NyQuil for symptoms yesterday but no medications today. He also complains of chronic low back pain and does take [place] daily and last had a dose yesterday. He does not smoke. No history of asthma or COPD. He does report history of chronic anemia and takes iron tablets at home. He reports when he called his doctor today he was advised to come to the ER to have blood work completed. He is pending an iron transfusion. No chest pain or pressure. No shortness of breath. Here for evaluation. Historical: - Allergies: 11:49 No Known Allergies; ss - Home Meds: 11:49 [place] [Active]; Iron supplements [Active]; ss - PMHx: 11:49 Anemia; Hypothyroidism; ss ROS: 11:52 Constitutional: Negative for fever, chills, and weight loss, Cardiovascular: Negative sw6 for chest pain, palpitations, and edema, Respiratory: Negative for shortness of breath, cough, wheezing, and pleuritic chest pain, Abdomen/GI: Negative for abdominal pain, nausea, vomiting, diarrhea, and constipation, 11:52 All other systems are negative, Exam: 11:52 Constitutional: This is a well developed, well nourished patient who is awake, alert, sw6 and in no acute distress. Chest/axilla: Normal chest wall appearance and motion. Nontender with no deformity. No lesions are appreciated. Cardiovascular: Regular rate and rhythm with a normal S1 and S2. No gallops, murmurs, or rubs. Normal PMI, no JVD. No pulse deficits. Respiratory: Lungs have equal breath sounds bilaterally, clear to auscultation and percussion. No rales, rhonchi or wheezes noted. No increased work of breathing, no retractions or nasal flaring. Abdomen/GI: Soft, non-tender, with normal bowel sounds. No distension or tympany. No guarding or rebound. No evidence of tenderness throughout. 11:52 MS/ Extremity: Pulses equal, no cyanosis. Neurovascular intact. Full, normal range of motion. Neuro: Awake and alert, GCS 15, oriented to person, place, time, and situation. Cranial nerves II-XII grossly intact. Motor strength 5/5 in all extremities. Sensory grossly intact. Cerebellar exam normal. Normal gait. Psych: Awake, alert, with orientation to person, place and time. Behavior, mood, and affect are within normal limits. 11:52 Eyes: Conjunctiva are pink bilaterally. 11:52 ENT: Dry mucous membranes. His pharynx is pink and without exudates or erythema.. Vital Signs: 11:47 BP 134 / 69; Pulse 73; Resp 16; Temp 99(O); Pulse Ox 96% on R/A; ss 12:00 BP 131 / 69; Pulse 85; Resp 16; Pulse Ox 97% ; bp 17:02 BP 127 / 75; Pulse 79; Resp 16; Pulse Ox 98% ; bp MDM: 11:52 Differential Diagnosis: Influenza Upper Respiratory Infection Allergic Rhinitis Viral sw6 Syndrome Pneumonia. Data reviewed: vital signs, nurses notes. 12:27 Medical Screening Exam initiated 16:22 Data reviewed: lab test result(s), CBC, radiologic studies, plain films. ED course: The 6 patient is doing well hernia. His viral swab was negative for COVID as well as influenza. His chest x-ray shows no pneumonia. His laboratory studies today show hemoglobin of 9.3 which is improved from his previous value of 8.8 obtained on November 19 of this year. Recommend use [id number] cough and cold medications as needed for his symptoms. He remained stable here in the ER and is okay for discharge home with PCP follow-up.. 12/05 11:52 Order name: COVID-19 Ag + Flu A+B Ag; Complete Time: 12:39 12/05 12:39 Interpretation: Within normal limits. 12/05 11:52 Order name: CBC w/o diff; Complete Time: 16:18 12/05 16:18 Interpretation: Abnormal: Anemia. /24 16:15 Order name: CBC Smear Scan; Complete Time: 16:18 EDWI 12/05 16:19 Interpretation: Within normal limits. 6 12/05 11:52 Order name: CXR XRAY 6 Administered Medications: No medications were administered Disposition Summary: 12/05/24 16:23 Discharge Ordered Notes: Location: Home 6 Condition: Stable sw6 Diagnosis - Acute upper respiratory infection, unspecified sw6 - Anemia, unspecified sw6 Followup: sw6 - With: Private Physician - When: 2 - 3 days - Reason: Discharge Instructions: - Discharge Summary Sheet 6 - Anemia sw6 - Upper Respiratory Infection, Adult 6 Forms: - Medication Reconciliation Form 6 - Antibiotic Education 6 - Prescription Opioid Use sw6 - Patient Portal Instructions 6 - Leadership Thank You Letter Signatures: Dispatcher [employer] Tracee Betancourt, JULIAN RN Mervat Brown MD MD sw6
[2024-12-05 18:08] VITALS: BP 134/69; TEMP 99; O2SAT 96
--- NOTE | 2024-12-08 09:59 | RAD REPORT ---
Procedure: Chest Single View HISTORY: Congestion COMPARISON: none FINDINGS: The interstitial pattern within the left base is mildly prominent. Remainder of the lungs appear clear.. No significant pleural effusion noted. The heart is normal size. IMPRESSION: Interstitial pattern in the left base is mildly prominent. PA and lateral chest series may be helpful .
== END 2024-12-05 16:52 | disposition home or self-care (01) ==
LOC: ER 11:23
DX: J06.9 Acute upper respiratory infection, unspecified (principal); D64.9 Anemia, unspecified; Z11.52 Encounter for screening for COVID-19
CPT/HCPCS: 36415; 71045; 85027; 87428; 99283